=== PATIENT | female | born 1985 | race African-American/Black ===

== ENCOUNTER 2021-01-25 15:10 | Emergency (ER) | payer BC ==
[~2021-01-25] VITALS: Ht 157.5 cm; Wt 77.1 kg
[~2021-01-25 15:10] MED LIST: AMOXICILLIN 50500 M1 PO; AZITHROMYCIN 2250 MG PO; HAIR, SKIN & N1 EAC1 PO; NOHOMEMEDICATIONS; PEPCID AC20 M1 PO; TRAMADOL 50 MG50 MG PO; TRINATE TABLET1 TAB PO
[2021-01-25] MEDS ORDERED: CIPROFLOXIN HC2.5 M1 OPHTHALMIC (15:15)
[2021-01-25 16:19] LABS: ABSOLUTE NEUTROPHILS 2.5 thou/uL (1.4-8.2); BASOPHILS 0.4 % (0.0-2.0); EOSINOPHILS 2.2 % (0.0-3.0); HEMATOCRIT 40.1 % (37.0-47.0); HEMOGLOBIN 13.7 gm/dL (12.0-15.0); MCH 29.1 pg (26.0-34.0); MCV 85.4 fL (80.0-100.0); MONOCYTES 6.4 % (1.0-8.0); PLATELET COUNT 223 thou/uL (150-400); RDW 12.6 % (10.5-14.5); WBC 4.5 thou/uL (4.0-11.0)
[2021-01-25 16:28] LABS: CALCIUM 9.1 mg/dL (8.5-10.1)
[2021-01-25 16:34] LABS: ALBUMIN 3.7 g/dL (3.4-5.0); TOTAL BILIRUBIN 0.5 mg/dL (0.2-1.0); TOTAL PROTEIN 7.4 g/dL (6.4-8.2)
[2021-01-25 16:44] LABS: URINE BILIRUBIN NEGATIVE (Negative); URINE BLOOD NEGATIVE (Negative); URINE CLARITY CLEAR; URINE COLOR YELLOW; URINE GLUCOSE-RANDOM* NEGATIVE (Negative); URINE KETONES NEGATIVE (Negative); URINE NITRITE-REFLEX NEGATIVE (Negative); URINE PROTEIN (DIPSTICK) NEGATIVE (Negative); URINE SPECIFIC GRAVITY 1.015 (1.005-1.035); URINE UROBILINOGEN 0.2 E.U./dl (0.2-1.0)
[2021-01-25 16:45] VITALS: BP 140/83
[2021-01-25 16:55] LABS: URINE LEUKOCYTES-REFLEX 1+ (Negative)
[2021-01-25 17:41] LABS: BACTERIA-REFLEX 1-9 Few /HPF (None Seen); CASTS None Seen /LPF (None Seen); CRYSTALS None Seen /LPF (None Seen); MUCUS 0-3 Light strn/LPF (None Seen); SQUAMOUS 4-10 Moderate /LPF (0-3); URINE RBC 1-2 Rare /HPF (NONE SEEN); URINE WBC-REFLEX 0-5 Rare /HPF (0-5)
== END 2021-01-25 16:45 | disposition home or self-care (01) ==
LOC: ER 15:10
PROVIDERS: Physician Assistant
DX: M25.552 Pain in left hip (principal); M79.10 Myalgia, unspecified site; Z20.822 Contact with and (suspected) exposure to COVID-19